=== PATIENT | male | born 1950 | race Caucasian/White ===

== ENCOUNTER 2020-02-06 10:54 | Emergency (ER) | payer OTHER ==
[~2020-02-06] VITALS: Ht 182.9 cm; Wt 84.8 kg
[2020-02-06 10:57] VITALS: BP 170/93
--- NOTE | 2020-02-06 13:48 | NUR ---
PT AMBULATORY TO PERFORM VISUAL ACQUITY TEST, STEADY GAIT. SITTING IN ROOM, RESPIRATIONS EVEN AND UNLABORED, NO SIGNS OF DISTRESS WILL CONTINUE TO MONITOR.
--- NOTE | 2020-02-06 14:03 | NUR ---
REPORT FROM SHAQUILLE LEE. PT CARE RESPONSIBILITIES ASSUMED.
== END 2020-02-06 14:47 | disposition home or self-care (01) ==
LOC: ED 12:14
DX: H43.11 Vitreous hemorrhage, right eye (principal); I10 Essential (primary) hypertension
CPT/HCPCS: 70450; 99284